=== PATIENT | female | born 1950 | race Caucasian/White ===

== ENCOUNTER 2021-05-17 06:02 | Day surgery (SDC) | payer OTHER ==
[~2021-05-17] VITALS: Ht 162.6 cm; Wt 79.5 kg
[~2021-05-17 06:02] MED LIST: CALC-1038 PO; MULT-1203 PO; OMEP10 PO; PRAV10TA39 PO; VENL-193 PO
[2021-05-17] MEDS ORDERED: PrednisoLONE ACETATE 1% 5 ML OPHTHALMIC SUSPENSION AD ONE (06:03)
[2021-05-17] MEDS ORDERED: BALANCED SALT 15 ML OPHTHALMIC IRRIG.SOLN IO ONE (06:03)
[2021-05-17] MEDS ORDERED: FentaNYL CITRATE PF 100 MCG/2 ML VIAL IVP ONE (06:03)
[2021-05-17] MEDS ORDERED: EPINEPHrine 1:1,000 [1 MG/ML] AMP ET ONE (06:03)
[2021-05-17] MEDS ORDERED: TETRACAINE HCL/PF 0.5% 4 ML OPHTHALMIC SOLUTION OD ONE (06:03)
[2021-05-17] MEDS ORDERED: NEOMYCIN/POLYMYXIN B/DEXAMETH 3.5 GM OPHTHALMIC OINTMENT OD ONE (06:03)
[2021-05-17] MEDS ORDERED: HYALURONATE SOD 8.5MG/0.85ML 10 MG/ML SYRINGE IO ONE (06:03)
[2021-05-17] MEDS ORDERED: MIDAZOLAM HCL 2 MG/2 ML VIAL IVP ONE (06:03)
[2021-05-17] MEDS ORDERED: LIDOCAINE 2%/EPI 1:200,000/PF 10 ML VIAL CAUDAL ONE (06:03)
[2021-05-17] MEDS ORDERED: TETRACAINE HCL/PF 0.5% 4 ML OPHTHALMIC SOLUTION OS ONE (07:00)
[2021-05-17 07:44] LABS: COVID AG,FIA SOURCE NASAL SWAB
[2021-05-17] MEDS ORDERED: MOXIFLOXACIN HCL 0.5% 3 ML OPHTHALMIC SOLUTION ONE (08:15)
[2021-05-17] MEDS ORDERED: PHENYLEPHRINE HCL 2.5% 2 ML OPHTHALMIC SOLUTION ONE (08:16)
[2021-05-17] MEDS ORDERED: FLURBIPROFEN SODIUM 0.03% 2.5 ML OPHTHALMIC SOLUTION ONE (08:16)
[2021-05-17] MEDS ORDERED: CYCLOPENTOLATE HCL 1% 2 ML OPHTHALMIC SOLUTION ONE (08:17)
[2021-05-17] MEDS ORDERED: TROPICAMIDE 1% 2 ML OPHTHALMIC SOLUTION ONE (08:17)
[2021-05-17] MEDS: TROPICAMIDE 1% 2 ML OPHTHALMIC SOLUTION OS SCH ×3 (08:26→08:44)
[2021-05-17] MEDS: CYCLOPENTOLATE HCL 1% 2 ML OPHTHALMIC SOLUTION OS SCH ×3 (08:26→08:43)
[2021-05-17] MEDS: PHENYLEPHRINE HCL 2.5% 2 ML OPHTHALMIC SOLUTION OS SCH ×3 (08:28→08:44)
[2021-05-17] MEDS: FLURBIPROFEN SODIUM 0.03% 2.5 ML OPHTHALMIC SOLUTION OS SCH ×3 (08:29→08:44)
[2021-05-17] MEDS: MOXIFLOXACIN HCL 0.5% 3 ML OPHTHALMIC SOLUTION OS SCH ×3 (08:29→08:45)
[2021-05-17] MEDS ORDERED: RINGERS SOLUTION,LACTATED 500 ML IV ONE ×2 (08:40→09:15)
[2021-05-17] MEDS ORDERED: PrednisoLONE ACETATE 1% 5 ML OPHTHALMIC SUSPENSION ONE (09:45)
== END 2021-05-17 11:15 | disposition home or self-care (01) ==
LOC: SURGERY 06:02
PROVIDERS: ATTEND Ophthalmology
DX: H25.12 Age-related nuclear cataract, left eye (principal); Z79.899 Other long term (current) drug therapy; E78.00 Pure hypercholesterolemia, unspecified; Z88.0 Allergy status to penicillin; Z88.8 Allergy status to other drugs, medicaments and biological substances; Z98.890 Other specified postprocedural states; E78.5 Hyperlipidemia, unspecified
CPT/HCPCS: 66984; 87426; 93005; C9803; J0171; J2250; J3010; J7120; V2632

== ENCOUNTER 2022-06-29 12:28 | Day surgery (SDC) | payer OTHER ==
[~2022-06-29] VITALS: Ht 162.6 cm; Wt 77.2 kg
[~2022-06-29 12:28] MED LIST changes: +BALANCED SALT 15 ML OPHTHALMIC IRRIG.SOLN OD ONE; +CYCLOPENTOLATE HCL 1% 2 ML OPHTHALMIC SOLUTION ONE; +EPINEPHrine 1:1,000 [1 MG/ML] VIAL SQ ONE; +FLURBIPROFEN SODIUM 0.03% 2.5 ML OPHTHALMIC SOLUTION ONE; +FentaNYL CITRATE PF 100 MCG/2 ML VIAL IVP ONE; +HYALURONATE SOD 8.5MG/0.85ML 10 MG/ML SYRINGE IO ONE; +LIDOCAINE/PF 1% 2 ML VIAL IM ONE; +MIDAZOLAM HCL 2 MG/2 ML VIAL IVP ONE; +MOXIFLOXACIN HCL 0.5% 3 ML OPHTHALMIC SOLUTION OD ONE; +MOXIFLOXACIN HCL 0.5% 3 ML OPHTHALMIC SOLUTION ONE; +PHENYLEPHRINE HCL 2.5% 2 ML OPHTHALMIC SOLUTION ONE; +POVIDONE-IODINE 5% 30 ML OPHTHALMIC SOLUTION OD ONE; +PrednisoLONE ACETATE 1% 5 ML OPHTHALMIC SUSPENSION OD ONE; +RINGERS SOLUTION,LACTATED 500 ML IV ONE; +TETRACAINE HCL/PF 0.5% 4 ML OPHTHALMIC SOLUTION OD ONE; +TROPICAMIDE 1% 2 ML OPHTHALMIC SOLUTION ONE
[2022-06-29] MEDS: TROPICAMIDE 1% 2 ML OPHTHALMIC SOLUTION OD SCH ×3 (13:02→13:17)
[2022-06-29] MEDS: PHENYLEPHRINE HCL 2.5% 2 ML OPHTHALMIC SOLUTION OD SCH ×3 (13:02→13:17)
[2022-06-29] MEDS: FLURBIPROFEN SODIUM 0.03% 2.5 ML OPHTHALMIC SOLUTION OD SCH ×3 (13:02→13:17)
[2022-06-29] MEDS: CYCLOPENTOLATE HCL 1% 2 ML OPHTHALMIC SOLUTION OD SCH ×3 (13:02→13:17)
[2022-06-29] MEDS: MOXIFLOXACIN HCL 0.5% 3 ML OPHTHALMIC SOLUTION OD SCH ×3 (13:03→13:17)
[2022-06-29] MEDS ORDERED: TETRACAINE HCL/PF 0.5% 4 ML OPHTHALMIC SOLUTION ONE (13:08)
[2022-06-29] MEDS ORDERED: TETRACAINE HCL/PF 0.5% 4 ML OPHTHALMIC SOLUTION OD ONE (13:30)
[2022-06-29] MEDS ORDERED: BESIFLOXACIN HCL 0.6% 5 ML OPHTHALMIC SUSPENSION OD ONE (15:00)
== END 2022-06-29 16:00 | disposition home or self-care (01) ==
LOC: SURGERY 12:28
PROVIDERS: ATTEND Ophthalmology
DX: H25.11 Age-related nuclear cataract, right eye (principal); E78.00 Pure hypercholesterolemia, unspecified; Z79.899 Other long term (current) drug therapy; Z88.0 Allergy status to penicillin; Z88.8 Allergy status to other drugs, medicaments and biological substances
CPT/HCPCS: 66984; 93005; J0171; J3010; J3490; J2250; Q9967; J7120; V2632